=== PATIENT | female | born 1975 | race Caucasian/White ===

== ENCOUNTER 2018-01-02 10:50 | Inpatient (IN) | payer BC, OTHER ==
[~2018-01-02] VITALS: Ht 167.6 cm; Wt 65.8 kg
--- NOTE | 2018-01-02 13:30 | NUR ---
Pre admission Pre-admission assessment performed in the intake department of [facility]. Pt is A&O and ambulatory with a walker. She does not appear intoxicated and answers questions appropriately. She reports that she is here to be treated for opioid withdrawal with occasional Ativan use. Vitals: B/P 115/76, HR 107, RR 18, O2 sat 97%, T 98.0, pain 0/10. Pt is stable and admission is to continue on the [facility].
[2018-01-02] MEDS ORDERED: BUPRENORPHINE HCL 2 MG TAB.SUBL SL PRN (13:45)
[2018-01-02] MEDS ORDERED: LOPERAMIDE HCL 2 MG CAPSULE PO PRN ×2 (13:45)
[2018-01-02] MEDS ORDERED: MIRALAX 17 GM POWD.PACK PO PRN (13:45)
[2018-01-02] MEDS ORDERED: MAGNESIUM HYDROXIDE 30 ML LIQUID UDC PO PRN (13:45)
[2018-01-02] MEDS ORDERED: CLONIDINE HCL 0.1 MG TABLET PO PRN (13:45)
[2018-01-02] MEDS ORDERED: ONDANSETRON 4 MG/2 ML VIAL IM PRN (13:45)
[2018-01-02] MEDS ORDERED: MAG HYDROX/AL HYDROX/SIMETH 30 ML LIQUID UDC PO PRN (13:45)
--- NOTE | 2018-01-02 13:45 | NUR ---
Admission Note Pt 42 y/o female admitted for medically supervised withdrawal of Dilaudid. Pt has allergies to PCN, Macrobid, Gabapentin, latex and medical tape. Pt has history of febrile seizures as a child. Patient is A&O X3. Pt reports Dilaudid use started 18 months ago with CAD pump. Was using 48 mg IV daily for 18 months. Pt had Dilaudid CAD pump removed last week, 12/25/17. Pt has used PO dilaudid 4 mg. Last used yesterday 01/01/18 at 1700. Pt has never been to detox treatment before. Vitals- Resp 18, Sat 97%, HR 107, BP 115/76, Temp 98.7. Height 5'6", weight 145#. Pt is a non-smoker. Pt presents with depressed mood, flat affect, fine tremors, chills, sweats, anxious, irritable, generalized body aches, body pain #5/10, nausea and no appetite. Skin is intact. Pt denies SI/HI. Admitting COWS 17, CIWA 19. Pt reports past medical history of anxiety and depression No daily medications. Only Epi-Pen for allergic reactions. In 2014 she has a left foot injury which lead to her dependency on Dilaudid. 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 Pt had PE in October 2016. She is not on any anti-coagulants. She has pulmonary endocarditis in September 2017 Pt states she is seeking treatment today because she wants off all medications. She has decreasing energy, impaired work productivity and negatively impacting his physical and mental health related to Dilaudid use. Pt states that she is ready to focus on recovery. She has the support of his family. Educated patient about plan of care including detox, group therapy, individual therapy, and discharge planning. Encouraged Pt to be open and honest, verbalize support for Pt in her recovery.
[2018-01-02 13:48] VITALS: BP 115/76
[2018-01-02 14:26] LABS: *URINE HCG, QUAL NEGATIVE (NEGATIVE)
[2018-01-02 14:35] LABS: *AMPHETAMINE, URINE NEGATIVE (NEGATIVE); *BARBITURATE, URINE NEGATIVE (NEGATIVE); *CANNABINOID, URINE NEGATIVE (NEGATIVE); *COCCAINE, URINE NEGATIVE (NEGATIVE); *OPIATE, URINE POSITIVE (NEGATIVE); *PHENCYCLIDINE SCREEN,URINE NEGATIVE (NEGATIVE)
[2018-01-02] MEDS: IBUPROFEN 600 MG TABLET PO PRN (14:55)
[2018-01-02] MEDS: METHOCARBAMOL 750 MG TABLET PO PRN (14:55)
[2018-01-02] MEDS: DICYCLOMINE HCL 20 MG TABLET PO PRN ×2 (14:55→22:07)
[2018-01-02] MEDS: LORAZEPAM 1 MG TABLET PO PRN (14:55)
[2018-01-02] MEDS: BUPRENORPHINE HCL 2 MG TAB.SUBL SL SCH ×2 (14:56→20:40)
--- NOTE | 2018-01-02 14:58 | NUR ---
PRN MEDICATIONS ATIVAN 2 MG PO FOR ANXIETY [id number] BENTYL 20 MG PO FOR STOMACH CRAMPS MOTRIN 600 MG PO FOR BODAY PAIN AND HEADACHE #5/10 ROBAXIN 750 MG PO FOR BODY ACHES
--- NOTE | 2018-01-02 15:05 | NUR ---
PRN ZOFRAN 2 MG IM FOR EMESIS APPROX 20 ML
[2018-01-02] MEDS ORDERED: EPIN0.3A3 IM (15:11)
[2018-01-02 15:19] LABS: BASOPHILS % (AUTO) 0.4 % (0.0-2.0); EOSINOPHILS # (AUTO) 0.1 K/uL (0.0-0.7); HEMATOCRIT 41.4 % (31.2-41.9); HEMOGLOBIN 14.1 g/dL (10.9-14.3); LYMPHOCYTES # (AUTO) 2.7 K/uL (20.0-40.0); LYMPHOCYTES % (AUTO) 34.3 % (20.5-51.5); MEAN CORPUSCULAR HEMOGLOBIN 28.2 uug (24.7-32.8); MEAN CORPUSCULAR HGB CONC 34 g/dL (32.3-35.6); MEAN CORPUSCULAR VOLUME 82.7 fL (75.5-95.3); MONOCYTES # (AUTO) 0.5 K/uL (2.0-10.0); NEUTROPHILS # (AUTO) 4.6 K/uL (1.8-8.9); NEUTROPHILS % (AUTO) 58.3 % (38.5-71.5); PLATELET COUNT (AUTO) 313 K/uL (179-408); RED BLOOD CELL COUNT(AUTO) 5.01 MIL/uL (3.63-4.92); WHITE BLOOD COUNT (AUTO) 7.9 K/uL (3.8-11.8)
[2018-01-02 15:29] LABS: ALANINE AMINOTRANSFERASE 17 U/L (14-59); ALKALINE PHOSPHATASE 73 U/L (50-136); ASPARTATE AMINOTRANSFERASE 11 U/L (15-37); BILIRUBIN,TOTAL 0.7 mg/dL (0.2-1.0); CARBON DIOXIDE 27 mmol/L (21-32); CHLORIDE 106 mmol/L (98-107); CREATININE 0.7 mg/dL (0.6-1.3); GLUCOSE 95 mg/dL (74-106); MAGNESIUM 2.2 mg/dL (1.8-2.4); POTASSIUM 3.5 mmol/L (3.5-5.1); TOTAL PROTEIN, SERUM 8.3 g/dL (6.4-8.2); UREA NITROGEN, BLOOD 6 mg/dL (7-18)
[2018-01-02 15:31] LABS: ETHANOL < 3 MG/DL (0-0)
--- NOTE | 2018-01-02 15:59 | NUR ---
REASSESS- PT REPORTS ANXIETY IMPROVED. STOMACH CRAMPS IMPROVED. PT STILL HAS BODY ACHES AND HEAD ACHE. NAUSEA IMPROVED AND NO MORE EMESIS.
[2018-01-02 16:00] VITALS: BP 111/63
--- NOTE | 2018-01-02 18:29 | NUR ---
End of shift Pt 42 y/o female admitted this afternoon for medically supervised withdrawal of Dilaudid. Pt on 5 day Subutex taper. Last COWS 18, CIWA 21. Pt presents with depressed mood, fine tremors, chills, sweats, anxious, irritable, generalized body aches, body pain #5/10, nausea and no appetite. PRN medications given; Bentyl, Zofran, Motrin, Robaxin, Ativan. PO fluids 1095 ml, voids x 3, no BM. Pt has ALLERGIES to PCN, Macrobid, Gabapentin, latex and medical tape. FULL CODE. All safety precautions in place. Call light within reach. Will continue to monitor for withdrawal symptoms. Endorsed to PM shift.
[2018-01-02 20:00] VITALS: BP 101/62
--- NOTE | 2018-01-02 20:00 | NUR ---
START OF SHIFT NOTE RECEIVED REPORT FROM DAY SHIFT NURSE. PATIENT IS A 42 YEAR OLD FEMALE NEWLY ADMITTED FOR OPIATE WITHDRAWAL. PATIENT WAS PLACED ON 5 DAY SUBUTEX TAPER. PATIENT WAS GIVEN PRN ATIVAN, BENTYL, ZOFRAN , MOTRIN AND ROBAXIN . LAST COWS 18 AND CIWA 21. PATIENT IN THE ROOM, PRESENTS WITH FLAT AFFECT, DEPRESSED MOOD, ANXIOUS, RESTLESS, SWEATING, COLD, ABDOMINAL CRAMPING , RESTLESS LEGS, YAWNING AND NAUSEATED BUT NO EMESIS. SAFETY MEASURES IN PLACE. CALL LIGHT IN REACH. WILL CONTINUE TO MONITOR
[2018-01-02] MEDS: diphenhydrAMINE 50 MG CAPSULE PO PRN (20:37)
[2018-01-02] MEDS: ONDANSETRON ODT 4 MG TAB.RAPDIS SL PRN (20:37)
--- NOTE | 2018-01-02 20:37 | NUR ---
PRN BENADRYL AND ZOFRAN ADMIN PATIENT C/O NAUSEA BUT NO EMESIS AND REQUESTS FOR SLEEP AID. WILL MONITOR FOR EFFECTIVENESS
--- NOTE | 2018-01-02 21:07 | NUR ---
PRN ZOFRAN RE-ASSESSMENT PATIENT STATES NAUSEA CEASED. ZOFRAN EFFECTIVE
--- NOTE | 2018-01-02 22:07 | NUR ---
PRN BENTYL ADMIN PATIENT C/O ABDOMINAL CRAMPING, WILL MONITOR FOR EFFECTIVENESS
--- NOTE | 2018-01-02 23:07 | NUR ---
PRN BENTYL RE-ASSESSMENT PATIENT STATES BENTYL AND HELPFUL. WILL CONTINUE TO MONITOR
--- NOTE | 2018-01-02 23:07 | NUR ---
PRN BENADRYL RE-ASSESSMENT PATIENT IN BED WITH EYES CLOSED. RESPIRATION EVEN AND UNLABORED. WILL CONTINUE TO MONITOR
[2018-01-03] VITALS: BP 94/56
--- NOTE | 2018-01-03 | NUR ---
COWS DEFERRED PATIENT IN BED WITH EYES CLOSED. RESPIRATION EVEN AND UNLABORED. WILL CONTINUE TO MONITOR
--- NOTE | 2018-01-03 00:30 | NUR ---
PT IS CALM AND RESTING IN BED WITH EYES CLOSED.WILL CONTINUE TO MONITOR.
[2018-01-03 04:00] VITALS: BP 96/56
--- NOTE | 2018-01-03 04:00 | NUR ---
COWS DEFERRED PATIENT IN BED WITH EYES CLOSED. RESPIRATION EVEN AND UNLABORED. WILL CONTINUE TO MONITOR
--- NOTE | 2018-01-03 07:11 | NUR ---
END OF SHIFT NOTE PATIENT SLEPT HOURS. FLUID INTAKE ML. VOIDED X . BM. MONITORED PATIENT THROUGHOUT SHIFT. PRESENTED WITH FLAT AFFECT, DEPRESSED MOOD, ANXIOUS, RESTLESS, SWEATING, COLD, ABDOMINAL CRAMPING , RESTLESS LEGS, YAWNING AND NAUSEATED BUT NO EMESIS. SHES EMOTIONAL AND MISSES HER CHILDREN. SCHEDULED MEDICATION AND SUBUTEX GIVEN ORDERED, TOLERATED WELL AND NO ADVERSE REACTION. PATIENT WAS GIVEN PRN ZOFRAN , BENADRYL AND BENTYL. SHES IN HER ROOM MOST OF THE SHIFT. SAFETY MEASURES IN PLACE. CALL LIGHT IN REACH. WILL CONTINUE TO MONITOR. LAST Addendum: 01/03/18 at 0721 by VIDAL WALLS LVN PATIENT SLEPT 6 HOURS. FLUID INTAKE 800 ML. VOIDED X 1. NO BM
--- NOTE | 2018-01-03 07:30 | NUR ---
End of shift Pt 42 y/o female admitted this afternoon for medically supervised withdrawal of opiates. Pt on 5 day Subutex taper and tolerating well. Last COWS 13. Pt presents with depressed mood, fine tremors, chills, sweats, anxious, irritable, generalized body aches, body pain #4/10, nausea and no appetite. Patient is compliant with medication regimen. Encourage pt to attend group therapies/sessions to learn new coping skills to prevent relapse. Pt has ALLERGIES to PCN, Macrobid, Gabapentin, latex and medical tape. FULL CODE. All safety precautions in place. Call light within reach. Will continue to monitor for withdrawal symptoms.
[2018-01-03 08:00] VITALS: BP 92/51
[2018-01-03] MEDS: IBUPROFEN 600 MG TABLET PO PRN ×2 (08:45→21:22)
[2018-01-03] MEDS: BUPRENORPHINE HCL 2 MG TAB.SUBL SL SCH ×3 (08:45→21:22)
[2018-01-03] MEDS: METHOCARBAMOL 750 MG TABLET PO PRN ×2 (08:45→22:57)
--- NOTE | 2018-01-03 08:48 | NUR ---
PRN MOTRIN 600 MG FOR HEAD ACHE AND BACK PAIN #4/10 PRN ROBAXIN 750 MG PO FOR BODY ACHES.
[2018-01-03] MEDS: ONDANSETRON ODT 4 MG TAB.RAPDIS SL PRN ×2 (08:49→20:45)
--- NOTE | 2018-01-03 08:50 | NUR ---
PRN ZOFRAN 4 MG SL FOR NAUSEA PRN MOTRIN 600 MG PO FOR BACK PAIN #4/10 PRN ROBAXIN 750 MG PO FOR BODY ACHES
[2018-01-03] MEDS ORDERED: TUBERCULIN,PURIF.PROT.DERIV. 5 TU/0.1 ML TEST ID ONE (09:00)
--- NOTE | 2018-01-03 09:56 | NUR ---
REASSESS MOTRIN- PT REPORTS BACK PAIN #07/29, IMPROVED. ROBAXIN- PT REPORTS BODY ACHES IMPROVED. ZOFRAN- PT REPORTS NAUSEA RESOLVED. SHE WAS ABLE TO EAT 25% BREAKFAST
[2018-01-03 10:06] LABS: HEPATITIS B SURFACE AG Negative (Negative)
[2018-01-03 12:00] VITALS: BP 99/55
[2018-01-03 12:06] LABS: VIT D, 25-HYDROXY 21.7 ng/mL (30.0-100.0)
[2018-01-03] MEDS: DICYCLOMINE HCL 20 MG TABLET PO PRN (13:16)
--- NOTE | 2018-01-03 13:17 | NUR ---
PRN GIVEN pt is c/o abdominal cramping. Bentyl 20mg PO PRN was given as ordered. Will continue to monitor.
--- NOTE | 2018-01-03 14:15 | NUR ---
REASSESS BENTYL- ABDOMINAL CRAMPS RESOLVED.
[2018-01-03] MEDS: DICYCLOMINE HCL 20 MG TABLET PO SCH ×2 (14:23→21:21)
[2018-01-03] MEDS: ACETAMINOPHEN 325 MG TABLET PO PRN (14:35)
[2018-01-03] MEDS: HYDROXYZINE PAMOATE 25 MG CAPSULE PO PRN (14:35)
--- NOTE | 2018-01-03 14:36 | NUR ---
PRN TYLENOL 650 MG PO FOR BACK PAIN #6/10 PRN VISTARIL FOR MODERATE ANXIETY
--- NOTE | 2018-01-03 15:31 | NUR ---
Client was prompted to attend group counseling sessions and client stated she would attend based on how she was feeling physically.
--- NOTE | 2018-01-03 15:35 | NUR ---
REASSESS TYLENOL- BACK PAIN NOW #2 REASSESS VISTARIL- PT REPORTS ANXIETY IMPROVED.
[2018-01-03 16:00] VITALS: BP 104/53
--- NOTE | 2018-01-03 18:30 | NUR ---
End of shift Pt 42 y/o female admitted for medically supervised withdrawal of opiates. Pt on 5 day Subutex taper tolerating well. PRN given today; Motrin, Robaxin, Tylenol, Vistaril and Zofran. Last COWS 16. Pt presents with fine tremors, chills, sweats, anxious, irritable, generalized body aches, body pain #4/10, nausea and poor appetite. Patient is compliant with medication regimen. Encourage pt to attend group therapies/sessions to learn new coping skills to prevent relapse. Pt not able to attend group therapies today. Pt was able to ambulate around unit twice. PO fluids 2210 ml, Voids X 4, no BM. Pt has ALLERGIES to PCN, Macrobid, Gabapentin, latex and medical tape. FULL CODE. All safety precautions in place. Call light within reach. Will continue to monitor for withdrawal symptoms. Endorsed to PM shift.
--- NOTE | 2018-01-03 19:30 | NUR ---
START OF SHIFT Pt is 42 y/o female admitted for medically supervised withdrawal of opiates. Pt continues on 5 day Subutex taper and is tolerating well. PRN given today; Motrin, Robaxin, Tylenol, Vistaril and Zofran. Last COWS 16. Pt received resting in bed,responsive on approach.Pt is a/o x 4,c/o having generalized body ache,nausea and abdominal cramps.PO fluids encouraged as tolerated. All safety precautions in place. Call light within reach. Will continue to monitor and medicate for withdrawal symptoms.
[2018-01-03 20:00] VITALS: BP 105/65
--- NOTE | 2018-01-03 20:45 | NUR ---
PRN ZOFRAN GIVEN ORDERED FOR C/O NAUSEA.NO C/O VOMITING NOTED.WILL MONITOR FOR EFFECTIVENESS.
[2018-01-03] MEDS: diphenhydrAMINE 50 MG CAPSULE PO PRN (21:22)
--- NOTE | 2018-01-03 21:22 | NUR ---
PRN MOTRIN AND BENADRYL GIVEN ORDERED FOR C/O GENERALIZED BODY ACHE AND INSOMNIA.WILL MONITOR. Addendum: 01/03/18 at 2214 by AMANDA SANFORD RN NAUSEA RESOLVED.
--- NOTE | 2018-01-03 22:25 | NUR ---
PRN REASSESSMENT PT IS STILL AWAKE,TRYING TO SLEEP.MOTRIN IS HELPFUL IN REDUCING BODY ACHE FROM 6/10 TO 2/1O.
--- NOTE | 2018-01-03 22:58 | NUR ---
PRN ROBAXIN GIVEN FOR MYALGIA.WILL MONITOR.
--- NOTE | 2018-01-03 23:50 | NUR ---
ROBAXIN REASSESSMENT PT STATES FEELING BETTER.MYALGIA RESOLVED.DVT PUMPS APPLIED ORDERED.WILL CONTINUE TO MONITOR.
[2018-01-04] VITALS: BP 84/50
[2018-01-04 04:00] VITALS: BP 85/50
--- NOTE | 2018-01-04 04:00 | NUR ---
COWS DEFERRED PATIENT IS RESTING IN BED WITH EYES CLOSED. COWS DEFERRED DUE PT BEING ASLEEP.RESPIRATION EVEN AND UNLABORED. WILL CONTINUE TO MONITOR
--- NOTE | 2018-01-04 07:00 | NUR ---
END OF SHIFT Pt 42 y/o female admitted for medically supervised withdrawal of opiates. Pt continues on 5 day Subutex taper and is tolerating well. PRN meds given : Motrin, Robaxin, Benadryl and Zofran. Last COWS 10 at midnight. Pt is compliant with medications and treatment plan. PO fluids encouraged as tolerated. All safety precautions in place.Pt slept 7 hrs,fluid intake was 1298 mls,voided x 3. Call light within reach. Will endorse care to day shift .
--- NOTE | 2018-01-04 07:17 | NUR ---
Start of Shift Notes: Received patient in her room. Easily arousable. Alert and oriented x 4. Wakes up when her name is called. She appears drowsy and somnolent upon waking. She appears disheveled. Encouraged maintenance of personal hygiene and space. Patient is a 42 year old male admitted for opiate withdrawal. She was placed on a 5-day Subutex taper as ordered. No adverse reactions noted. SCD pumps at bedside due to hx of PE. Educated patient on her current plan of care for the day and her medication regimen. Encouraged maintenance of personal hygiene and space. PRN Motrin, Robaxin, Benadryl, and Zofran given during the night. Slept for 7 hours. Last COWS 10. All needs met and attended. Will continue to monitor closely.
[2018-01-04 08:00] VITALS: BP 100/54
[2018-01-04] MEDS: ONDANSETRON ODT 4 MG TAB.RAPDIS SL PRN (08:16)
[2018-01-04] MEDS: METHOCARBAMOL 750 MG TABLET PO PRN ×2 (08:16→21:07)
--- NOTE | 2018-01-04 08:16 | NUR ---
Zofran 4mg SL/Clonidine 0.1mg/Robaxin 750mg/Toradol 30 mg/Ativan 2 mg PO given: , patient presented with gross tremors, chills, hot flashes, sweating, anxious, agitated, nausea, no vomiting, muscle aches, headache, PL 8/10, patient appears irritable and hyperverbal, verbalizing "I'm so cold and hot and I start shaking." Medicated patient with Zofran 4mg SL, Clonidine 0.1mg, Robaxin 750 mg, Toradol 30 mg IM, and Ativan 2 mg PO as ordered. Will monitor for effectiveness.
[2018-01-04] MEDS: CHOLECALCIFEROL 1,000 UNIT TABLET PO SCH (08:17)
[2018-01-04] MEDS: KETOROLAC TROMETHAMINE 30 MG INJ IM PRN (08:17)
[2018-01-04] MEDS: LORAZEPAM 1 MG TABLET PO PRN (08:17)
[2018-01-04] MEDS: DICYCLOMINE HCL 20 MG TABLET PO SCH ×3 (08:17→21:06)
--- NOTE | 2018-01-04 08:46 | NUR ---
Re-assessment: Toradol Patient verbalizes that her PL is now 3/10. PRN Toradol effective in reducing generalizes body aches.
[2018-01-04] MEDS ORDERED: BUPRENORPHINE HCL 2 MG TAB.SUBL SL SCH (09:00)
--- NOTE | 2018-01-04 09:16 | NUR ---
DC from PT/Re-assessment: Zofran, Clonidine, Robaxin and Ativan Patient appears calm at this time. She denies nausea, chills, hot flashes and sweating. She appears less agitated and verbalizes that her PL is now 3/10. She is currently with PT which will be dc'd today. Patient is able to ambulate ad jessica with FWW as tolerated. Will continue to monitor.
[2018-01-04] MEDS: DOCUSATE SODIUM 250 MG CAPSULE PO SCH (11:04)
[2018-01-04 12:00] VITALS: BP 91/63
--- NOTE | 2018-01-04 13:00 | NUR ---
Mid Shift Notes: COWs 15 at 1200. VSS. She is eating lunch in her room at this time. Uses FWW to ambulate ad jessica to ambulate around the unit.
--- NOTE | 2018-01-04 13:30 | NUR ---
Client was prompted to attend group counseling sessions.
[2018-01-04] MEDS: BUPRENORPHINE HCL 2 MG TAB.SUBL SL SCH ×2 (14:03→21:08)
--- NOTE | 2018-01-04 14:13 | NUR ---
Clarification of Usage: Clarification of Usage done. Patient verbalizes that she would use 1 to 4 mg of Dilaudid via IV CAD pump every 3 to 4 hours while she is awake.
[2018-01-04 16:00] VITALS: BP 96/52
--- NOTE | 2018-01-04 19:01 | NUR ---
End of Shift Notes: Patient continues to be on 5-day Subutex taper as ordered. Patient is currently on day 2 of her taper. She is tolerating it well without any adverse reactions noted. VS monitored closely. No significant abnormalities noted. Withdrawal symptoms were closely monitored. Initial COWS 23, patient presented with anxiety, agitation, yawning, chills, sweats, hot flashes, gross tremors, myalgia, headache, fatigue, abdominal cramps, and nausea requiring patient to be medicated with Zofran, Clonidine, Robaxin, Toradol and Ativan at 0816 with help. Last COWS 14. Patient verbalizes that Subutex has been effective in reducing her withdrawal symptoms. She was encouraged to attend group and social activities to learn coping skills to deal with negative emotions. She self isolates at times but is pleasant, compliant with care and treatment. Patient was dcd from PT today. Seen and examined by Dr. Rabago today and added Baclofen and Clonidine routinely to her medication regimen. Able to ambulate ad jessica with FWW around the unit. Appetite good. All needs met and attended. Will continue to monitor closely.
--- NOTE | 2018-01-04 19:30 | NUR ---
START OF SHIFT Pt 42 y/o female admitted for medically supervised withdrawal of opiates. Pt continues Subutex taper as ordered and is tolerating well.Last COWS 14. Pt stated that Subutex has been effective in reducing her withdrawal symptoms. PRN meds given during the day : Zofran, Clonidine, Robaxin, Toradol and Ativan .Pt stays in room most of time, mood is sad and depressed,pt stated that she is missing her children. Pt c/o having feeling anxious with generalized body aches,leg cramps and is requesting for sleep medication to help her sleep.She is pleasant on approach, compliant with care and treatment. Pt able to ambulate with a walker around the unit. Will continue to monitor for safety and medicate per orders. Addendum: 01/04/18 at 2007 by AMANDA SANFORD RN Pt does not want to take any medications at this time,is going for smoke break.Wants to take all her meds at bed time.
[2018-01-04 20:00] VITALS: BP 96/65
[2018-01-04] MEDS: IBUPROFEN 600 MG TABLET PO PRN (21:06)
[2018-01-04] MEDS: diphenhydrAMINE 50 MG CAPSULE PO PRN (21:07)
[2018-01-04] MEDS: BACLOFEN 10 MG TABLET PO SCH (21:07)
--- NOTE | 2018-01-04 21:07 | NUR ---
PRN MEDS MOTRIN,ROBAXIN AND BENADRYL GIVEN ORDERED F0R C/O HEADACHE,MYALGIA AND INSOMNIA.WILL CONTINUE TO MONITOR.PAIN LEVEL IS 7/10
[2018-01-04] MEDS: CLONIDINE HCL 0.1 MG TABLET PO SCH (21:08)
--- NOTE | 2018-01-04 22:20 | NUR ---
PRN MEDS ARE EFFECTIVE.PT IS CALM AND RESTING IN BED WITH EYES CLOSED.BREATHING IS EVEN AND NON LABORED,WILL CONTINUE TO MONITOR.
[2018-01-05] VITALS: BP 88/50
--- NOTE | 2018-01-05 | NUR ---
COWS DEFERRED PATIENT IS RESTING IN BED WITH EYES CLOSED. COWS DEFERRED DUE PT BEING ASLEEP.RESPIRATION EVEN AND UNLABORED.NO S/S OF DISTRESS NOTED. WILL CONTINUE TO MONITOR
[2018-01-05 04:00] VITALS: BP 89/52
--- NOTE | 2018-01-05 06:48 | NUR ---
END OF SHIFT Pt is a 42 y/o female admitted for medically supervised withdrawal of opiates. Pt continues on Subutex taper as ordered and is tolerating well.Last COWS 12 at 2000,midnight and 0400 cows deferred due to Pt being asleep. Pt stated that Subutex has been effective in reducing her withdrawal symptoms. PRN meds given during the night: Robaxin, Motrin and Benadryl which were effective. Pt slept 8 hrs,fluid intake was 500 mls,voided x 1 . Will endorse care to day shift nurse.
--- NOTE | 2018-01-05 07:24 | NUR ---
Start of Shift Notes: Received patient in her room. Easily arousable. Alert and oriented x 4. Wakes up when her name is called. She appears drowsy and somnolent upon waking. She appears disheveled. Encouraged maintenance of personal hygiene and space. She states "I don't know what I feel yet. I just woke up." Patient is a 42 year old male admitted for opiate withdrawal. She was placed on a 5-day Subutex taper as ordered. No adverse reactions noted. SCD pumps at bedside due to hx of PE. Educated patient on her current plan of care for the day and her medication regimen. Encouraged maintenance of personal hygiene and space. PRN Motrin, Robaxin, and Zofran given during the night. Slept for 8 hours. Last COWS 12. All needs met and attended. Will continue to monitor closely.
[2018-01-05 08:00] VITALS: BP 100/61
[2018-01-05] MEDS: DICYCLOMINE HCL 20 MG TABLET PO SCH ×3 (08:15→21:08)
[2018-01-05] MEDS: KETOROLAC TROMETHAMINE 30 MG INJ IM PRN ×2 (08:15→23:17)
[2018-01-05] MEDS: CLONIDINE HCL 0.1 MG TABLET PO SCH ×2 (08:15→21:09)
[2018-01-05] MEDS: BACLOFEN 10 MG TABLET PO SCH ×2 (08:15→21:09)
[2018-01-05] MEDS: METHOCARBAMOL 750 MG TABLET PO PRN ×2 (08:15→21:09)
[2018-01-05] MEDS: DOCUSATE SODIUM 250 MG CAPSULE PO SCH (08:15)
[2018-01-05] MEDS: CHOLECALCIFEROL 1,000 UNIT TABLET PO SCH (08:15)
--- NOTE | 2018-01-05 08:15 | NUR ---
Robaxin 750 mg PO/Toradol 30 mg IM given: Patient noted with complain of generalized 8/10 pain related to chronic regional pain syndrome and s/s of withdrawal. Patient is teary with noted facial grimacing and rubbing joints. Medicated patient with Robaxin 750 mg PO and Toradol 30 mg IM as ordered. Will monitor for effectiveness.
[2018-01-05] MEDS: BUPRENORPHINE HCL 2 MG TAB.SUBL SL SCH ×3 (08:16→21:08)
--- NOTE | 2018-01-05 08:45 | NUR ---
Re-assessment: Toradol Patient verbalized that PRN Toradol was effective in reducing pain. She states that her pain is now 2/10. No changes in LOC noted. Remains alert and oriented x 4.
--- NOTE | 2018-01-05 11:11 | NUR ---
New Orders: Bactrim DS Patient will be started on Bactrim DS tonight at 2100 for tx of bartholin cyst. Patient education provided. Patient verbalized good understanding.
[2018-01-05 12:00] VITALS: BP 97/61
--- NOTE | 2018-01-05 12:35 | NUR ---
Client was prompted to attend group counseling sessions.
[2018-01-05] MEDS ORDERED: LIDOCAINE 1%-EPI 1:100,000 20 ML VIAL TP STA (14:50)
--- NOTE | 2018-01-05 15:00 | NUR ---
Physician Consultation/I&D procedure: Dr. Walsh and HAZEL Willett seen and examined the patient's left labial Bartholin cyst. Consent for I& D procedure obtained after educating patient of the procedure. I & D to patient's left labial Bartholin cyst was done. Patient tolerated well. Culture obtained. Lidocaine EPI was administered by
[2018-01-05 16:00] VITALS: BP 94/55
--- NOTE | 2018-01-05 19:01 | NUR ---
End of Shift Notes: Patient continues to be on 5-day Subutex taper as ordered. Patient is currently on day 3 of her taper. She is tolerating it well without any adverse reactions noted. VS monitored closely. No significant abnormalities noted. Withdrawal symptoms were closely monitored. Initial COWS 218, patient presented with anxiety, agitation, chills, sweats, hot flashes, gross tremors, myalgia, fatigue, abdominal cramps, requiring patient to be medicated with Robaxin and Toradol at 0815. Denies S/I or H/I noted. Last COWS 14. Patient verbalizes that Subutex has been effective in reducing her withdrawal symptoms. I & D was performed by MD Walsh to patients left labial Bartholin cyst. Dressing intact. She was encouraged to attend group and social activities to learn coping skills to deal with negative emotions. Compliant with care and treatment. Able to ambulate ad jessica with FWW around the unit. Appetite good. All needs met and attended. Will continue to monitor closely.
--- NOTE | 2018-01-05 19:30 | NUR ---
START OF SHIFT Pt is a 42 y/o female admitted for medically supervised withdrawal from opiates. Pt continues on Subutex taper as ordered and is tolerating well.Last COWS 14. Pt stated that Subutex has been effective in reducing her withdrawal symptoms.Per day shift report, I & D was performed by MD Walsh to patients left labial Bartholin cyst. Dressing is intact.Pt is c/o of minimal pain at this time.Pain level is 2/10.Pt will be started on Bactrim DS tonight at 2100 for tx of bartholin cyst.PO fluids encouraged as tolerated. Pt stated that she has prior hx of this problem but this time it is the worst.Mood is sad and depressed because she is missing her children.Emotional support provided,Pt encouraged to verbalize feelings and concerns.Pt is pleasant and cooperative with medications and tx plan.Will continue to monitor.
[2018-01-05 20:00] VITALS: BP 96/55
[2018-01-05] MEDS: SULFAMETH/TRIMETH 800/160 MG TABLET PO SCH (21:08)
[2018-01-05] MEDS: diphenhydrAMINE 50 MG CAPSULE PO PRN (21:09)
[2018-01-05] MEDS: IBUPROFEN 600 MG TABLET PO PRN (21:09)
--- NOTE | 2018-01-05 21:10 | NUR ---
PRN MEDS PT C/O PAIN AROUND GENITAL AREA,SECONDARY TO PROCEDURE DONE EARLIER TODAY.PAIN LEVEL IS 5/10.PRN MOTRIN GIVEN FOR PAIN ORDERED.PT IS ALSO C/O HAVING MUSCLE ACHE/ PAIN AND INSOMNIA.PRN ROBAXIN AND BENADRYL GIVEN ORDERED FOR C/O MYALGIA AND INSOMNIA.WILL MONITOR FOR EFFECTIVENESS.
--- NOTE | 2018-01-05 22:10 | NUR ---
PRN REASSESSMENT PRN MOTRIN IS MINIMALL EFFECTIVE IN DECREASING PAIN.PAIN LEVEL IS 2/10.MYALGIA RESOLVED.DVT PUMPS IN PLACE.WILL CONTINUE TO MONITOR.
--- NOTE | 2018-01-05 23:17 | NUR ---
PRN TORADOL IM GIVEN ORDERED FOR C/O LEFT LABIAL PAIN.PAIN LEVEL IS 8/10.WILL MONITOR FOR EFFECTIVENESS.
[2018-01-06] VITALS: BP 90/53
--- NOTE | 2018-01-06 00:17 | NUR ---
PRN F/U PRN TORADOL IS EFFECTIVE.PT IS CALM AND RESTING IN BED WITH EYES CLOSED.WILL CONTINUE TO MONITOR.
[2018-01-06 04:00] VITALS: BP 89/55
--- NOTE | 2018-01-06 06:41 | NUR ---
END OF SHIFT Pt is a 42 y/o female admitted for medically supervised withdrawal of opiates. Pt continues on Subutex taper as ordered and is tolerating well.Last COWS 12. Pt stated that Subutex has been effective in reducing her withdrawal symptoms.Yesterday, I & D was performed by MD Walsh to patients left labial Bartholin cyst. Dressing is intact. Pt was started on Bactrim DS last night at 2100 for tx of bartholin cyst. No A/R noted. PRN meds given : Benadryl,Motrin,Robaxin and Toradol IM .Pt is pleasant and cooperative with medications and tx plan. Pt slept intermittently for 5 hrs,fluid intake was 1500 mls,voided x 4 .Pt is resting in bed with eyes closed at this time.Will endorse care to day shift nurse.
[2018-01-06 08:00] VITALS: BP 97/60
[2018-01-06] MEDS: BACLOFEN 10 MG TABLET PO SCH ×2 (08:37→21:13)
[2018-01-06] MEDS: CHOLECALCIFEROL 1,000 UNIT TABLET PO SCH (08:37)
[2018-01-06] MEDS: DICYCLOMINE HCL 20 MG TABLET PO SCH ×3 (08:37→21:13)
[2018-01-06] MEDS: SULFAMETH/TRIMETH 800/160 MG TABLET PO SCH ×2 (08:38→21:13)
[2018-01-06] MEDS: DOCUSATE SODIUM 250 MG CAPSULE PO SCH (08:43)
--- NOTE | 2018-01-06 08:45 | NUR ---
START OF SHIFT PT IS A 42 Y/O F ADMITTED ON 01/02/18 FOR MEDICALLY SUPERVISED OPIATE WITHDRAWAL. PT IS ON 5 DAY SUBUTEX TAPER THAT STARTED ON 01/03/18 AND TOLERATING WELL. LAST COWS 12 AND PT HAS BEEN GIVEN ROBAXIN, TORADOL, BENADRYL, IBUPROFEN PRNS LAST NIGHT AND PT SLEPT FOR 5 HRS INTERMITTENTLY. I&D WAS PERFORMED ON LEFT LABIA FOR BERTHOLIN CYST AND DRESSING IS INTACT. TO BE CHANGED AFTER PT TAKES A SHOWER. PT IS CURRENTLY RECEIVING PO ABX. DENIES PAIN AND REFUSES PAIN MEDS AT THIS TIME. PT IS A/OX4, PRESENTS ANXIOUS AND DEPRESSIVE MOOD. PRESENTS MILD ANXIETY, GENERALIZED BODY ACHES, INTERMITTENT CHILLS AND COLD FLASHES, RESTLESSNESS, CONGESTION, STOMACH CRAMPS AND INTERMITTENT PILOERECTION OF THE SKIN. PT STATES SHE WOULD HAVE NOT TAKEN PRESCRIPTION OPIATES IF SHE WAS GIVEN PROPER EDUCATION ABOUT WITHDRAWAL WHEN STOP TAKING. PT IS FEELING EMOTIONAL AND VERBALIZES FEELINGS ABOUT THE SITUATION. ENCOURAGED PT TO ATTEND GROUPS. SIDE RAILS UPX2, BED IN LOW POSITION. CALL LIGHT WITHIN REACH. SAFETY MEASURES IN PLACE. WILL CONTINUE TO MONITOR.
[2018-01-06] MEDS: BUPRENORPHINE HCL 2 MG TAB.SUBL SL SCH ×2 (09:04→21:14)
[2018-01-06] MEDS ORDERED: LIDOCAINE 5% OINT 35.44 GM TUBE TOP PRN (11:00)
[2018-01-06 12:00] VITALS: BP 96/62
--- NOTE | 2018-01-06 12:33 | NUR ---
PRN XYLOCAINE OINTMENT GIVEN ON L LABIAL AREA PRIOR TO WOUND CHANGE.
--- NOTE | 2018-01-06 13:03 | NUR ---
REASSESSMENT PT REPORTS MED WAS EFFECTIVE HOWEVER STILL PAINFUL DURING WOUND CHANGE. SAFETY MEASURES IN PLACE. WILL CONTINUE TO MONITOR.
--- NOTE | 2018-01-06 13:10 | NUR ---
WOUND TREATMENT DONE ON L LABIAL AREA AFTER PT SHOWERED; APPLIED LIDOCAINE OINTMENT, CLEANSED WITH NS AND WET PACKING W/ IODOPHORM PACKING STRIP.
--- NOTE | 2018-01-06 14:43 | NUR ---
PRN MIRALAX AND ROBAXIN PO PRNS GIVEN; PT REFUSED TO HAVE IBUPROFEN. PT C/O GENERALIZED PAIN 5/10 AND PAIN ON THE SIDES OF HER STOMACH BUT REPORTS NOT GI PAIN. WILL MONITOR AND REASSESS.
[2018-01-06] MEDS: METHOCARBAMOL 750 MG TABLET PO PRN (14:44)
--- NOTE | 2018-01-06 15:43 | NUR ---
REASSESSMENT PT REPORT ROBAXIN EFFECTIVE; PT REPORTS HAVING NO BM YET. WILL CONTINUE TO MONITOR AND PROVIDE SUPPORT.
[2018-01-06 16:30] VITALS: BP 105/58
--- NOTE | 2018-01-06 18:37 | NUR ---
END OF SHIFT LAST COWS 12. PT HAS BEEN GIVEN ROBAXIN, MIRALAX AND XYLOCAINE 5% OINTMENT PRNS DURING SHIFT. PT C/O CONSTIPATION AND HAS NOT YET HAD A BM. PT HAS BEEN COMPLIANT WITH MED REGIMEN AND TREATMENT PLAN. WOUND CHANGE HAS BEEN DONE AFTER PT SHOWERED @1330. PT ATE MOSTLY 75% OF MEALS. FLUID INTAKE 2750ML, VOIDED 5, BM 0. SAFETY MEASURES IN PLACE. WILL GIVE ENDORSEMENT TO VIDEO RECORDER MECHANIC NURSE.
--- NOTE | 2018-01-06 19:12 | NUR ---
Start of shift note Received report from day shift nurse. Pt is a 42 yo female, A+Ox4, presenting to [facility] for Opiate/Benzo withdrawal. Pt noted with agitation, restlessness, and anxiety. Pt has HX of endocarditis, PTSD, Pulmonary embolism, Chronic regional pain syndrome, anxiety, and depression which will be monitored during shift. Pt is on 5 day Subutex taper, tolerated well. Respirations even and unlabored. Will continue to monitor.
[2018-01-06 20:10] VITALS: BP 106/70
[2018-01-06] MEDS: CLONIDINE HCL 0.1 MG TABLET PO SCH (21:13)
[2018-01-06] MEDS: diphenhydrAMINE 50 MG CAPSULE PO PRN (21:28)
--- NOTE | 2018-01-06 21:28 | NUR ---
PRN Benadryl Pt c/o inability to sleep and requested for PRN Benadryl. Medication given and tolerated well. Will reassess within 1 HR. Will continue to monitor.
--- NOTE | 2018-01-06 22:20 | NUR ---
PRN Benadryl Reassessment Medication effective. Pt is resting well in bed. No s/s of ASE noted at this time. Respirations even and unlabored. Will continue to monitor.
[2018-01-07 00:15] VITALS: BP 127/85
[2018-01-07] MEDS: HYDROXYZINE PAMOATE 25 MG CAPSULE PO PRN (02:42)
--- NOTE | 2018-01-07 02:42 | NUR ---
PRN Vistaril Pt c/o anxiety and requested for PRN Vistaril. Medication given and tolerated well. Will reassess within 1 HR. Will continue to monitor.
--- NOTE | 2018-01-07 03:33 | NUR ---
PRN Vistaril Reassessment Medication effective. Pt expresses reduction in anxiety. No s/s of ASE noted at this time. Respirations even and unlabored. Will continue to monitor.
[2018-01-07 04:40] VITALS: BP 122/82
--- NOTE | 2018-01-07 07:00 | NUR ---
End of shift note Pt was continuously noted with anxiety, agitation, restlessness, and mild pain. Pt remained in room for majority of shift except to get food from kitchen. Pt remained cooperative and compliant with all aspects of treatment. Pt was given PRN Benadryl @2128 and PRN Vistaril @0242. Pt is on 5 day Subutex taper, tolerated well. Pt slept for a total of 4 HRS. Last COWS: 12 @0400. Respirations even and unlabored. Will endorse to day shift nurse.
--- NOTE | 2018-01-07 07:45 | NUR ---
START OF SHIFT Endorse rcvd from ongoing nurse, client is in bed, a/o x 4. Client presents with depressed mood and flat affect. Client denies any N/V/D. Client reports anxiety, restless legs, sweats, chills, headache, and fatigue. Bartholin abscess s/p I&D (01/05/18) left labial erythema with tenderness, incision site dry with minimum serosanguineous drainage. Last CIWA 12 @ 0400. PRN Vistaril 25mg PO for anxiety, Benadryl 50mg PO for insomnia, client slept 4 hrs. Encourage client to increase PO fluid to facilitate detox. Encourage client to participate in group therapy to learn skills to maintain sober. Seizure precautions in place. Bed in lowest/locked position. Side rails x 2 up/padded. Call light within reach.
[2018-01-07 08:50] VITALS: BP 117/75
[2018-01-07] MEDS ORDERED: BUPRENORPHINE HCL 2 MG TAB.SUBL SL SCH (09:00)
[2018-01-07] MEDS: DOCUSATE SODIUM 250 MG CAPSULE PO SCH (09:03)
[2018-01-07] MEDS: DICYCLOMINE HCL 20 MG TABLET PO SCH ×3 (09:03→20:52)
[2018-01-07] MEDS: SULFAMETH/TRIMETH 800/160 MG TABLET PO SCH ×2 (09:03→20:52)
[2018-01-07] MEDS: BACLOFEN 10 MG TABLET PO SCH ×2 (09:03→20:53)
[2018-01-07] MEDS: CHOLECALCIFEROL 1,000 UNIT TABLET PO SCH (09:03)
[2018-01-07 12:55] VITALS: BP 97/58
[2018-01-07] MEDS ORDERED: CHOL10002 PO (14:38)
[2018-01-07] MEDS ORDERED: IBUP-1957 PO (14:38)
[2018-01-07] MEDS ORDERED: ACET325T53 PO (14:38)
[2018-01-07] MEDS ORDERED: DICY20TA28 PO (14:38)
[2018-01-07] MEDS ORDERED: DIPH50CA37 PO (14:38)
[2018-01-07] MEDS ORDERED: CLON0.1T14 PO (14:38)
[2018-01-07] MEDS ORDERED: METH-406 PO (14:38)
[2018-01-07] MEDS ORDERED: DOCU250C14 PO (14:38)
[2018-01-07] MEDS ORDERED: HYDR-3895 PO (14:38)
[2018-01-07] MEDS: IBUPROFEN 800 MG TABLET PO PRN (15:24)
--- NOTE | 2018-01-07 15:24 | NUR ---
PRN Motrin 800mg PO for pain on wound s/p I&D L labial 12/27. Call light within reach.
--- NOTE | 2018-01-07 15:44 | NUR ---
Client was prompted to attend group counseling sessions.
--- NOTE | 2018-01-07 16:00 | NUR ---
Wound treatment to wound on L labial discussed with client, she understands the procedure, no inquiries made at this time.
--- NOTE | 2018-01-07 16:24 | NUR ---
Reassess PRN Motrin 800mg, client reports relief from pain on wound s/p I&D L labial 08/29, but tolerable.
[2018-01-07 16:55] VITALS: BP 105/62
[2018-01-07] MEDS: ACETAMINOPHEN 325 MG TABLET PO PRN (18:59)
--- NOTE | 2018-01-07 18:59 | NUR ---
PRN Tylenol 650mg PO for generalized body aches 11/26. Call light within reach. Endorse to incoming nurse to reassess.
--- NOTE | 2018-01-07 19:21 | NUR ---
END OF SHIFT Endorse rcvd from ongoing nurse, client is in bed, a/o x 4. Client continues to present with depressed mood, flat affect, anxiety, restless legs, body aches, and fatigue. Last COWS 6 @ 1600. PRN administered and noted per protocol. Adequate PO fluid intake 2400mL, void x 4. Client consumes 75% of meals. Client is not compliant with group therapy. Seizure precautions in place. Bed in lowest/locked position. Side rails x 2 up/padded. Call light within reach.
--- NOTE | 2018-01-07 19:22 | NUR ---
Start of shift note Received report from day shift nurse. Pt is a 42 yo female, A+Ox4, presenting to [facility] for Opiate/Benzo withdrawal. Pt noted to be agitated, anxious, and restless. Pt has HX of PTSD, anxiety, depression, endocarditis, pulmonary embolism, left foot injury, and chronic regional pain syndrome. Pt has completed 5 day Subutex taper, tolerated well, and is due for discharge tomorrow. Respirations even and unlabored. Will continue to monitor.
--- NOTE | 2018-01-07 19:48 | NUR ---
PRN Tylenol Reassessment Medication effective. Pt expresses reduction of pain to 2/10. No s/s of ASE noted at this time. Respirations even and unlabored. Will continue to monitor.
[2018-01-07 20:18] VITALS: BP 101/53
[2018-01-07] MEDS: CLONIDINE HCL 0.1 MG TABLET PO SCH (20:53)
[2018-01-07] MEDS: diphenhydrAMINE 50 MG CAPSULE PO PRN (21:02)
--- NOTE | 2018-01-07 21:02 | NUR ---
PRN Benadryl Pt c/o inability to sleep and requested for PRN Benadryl. Medication given and tolerated well. Will reassess within 1 HR. Will continue to monitor.
[2018-01-08 00:42] VITALS: BP 110/59
[2018-01-08 04:29] VITALS: BP 115/64
--- NOTE | 2018-01-08 07:00 | NUR ---
End of shift note Pt was continuously noted with anxiety, agitation, and restlessness. Pt remained in room for majority of shift except to get food from kitchen. Pt remained compliant and cooperative with all aspects of treatment. Pt has completed 5 day Subutex taper, tolerated well, and is due for discharge today. Pt was given PRN Deannel @2102. Pt slept for a total of 7 HRS. Last COWS: 5 @0400. Respirations even and unlabored. Will endorse to day shift nurse.
--- NOTE | 2018-01-08 07:36 | NUR ---
START OF SHIFT Client is in room, she is a/o x 4. Client presents with anxious mood and flat affect. She reports feeling anxious because of being discharge home this am. She stated, "I know what I have to do now, I will go to AA meeting, I am planning to get acupuncture to help me deal with my chronic pain." Discuss discharge instructions and medications prescribed, client has no inquiries at this time. Client reports generalized body aches, pain on wound site L labial (sp I&D 01/05/18) 09/26. Client completed 5 day Subutex taper. Last COWS 5 @ 0400. PRN Benadryl 50mg PO for insomnia, client slept 7 hrs. Seizure precautions rendered.
[2018-01-08 08:12] VITALS: BP 104/58
--- NOTE | 2018-01-08 08:45 | NUR ---
Wound treatment to Left labial applied, client unable to do it herself, but stated, "I know how to do the packing, is just that it is hard to do it, but my will be able to do it with my instructions." Client verbalized instructions.
[2018-01-08] MEDS: CHOLECALCIFEROL 1,000 UNIT TABLET PO SCH (08:59)
[2018-01-08] MEDS: DICYCLOMINE HCL 20 MG TABLET PO SCH (08:59)
[2018-01-08] MEDS: SULFAMETH/TRIMETH 800/160 MG TABLET PO SCH (08:59)
[2018-01-08] MEDS: DOCUSATE SODIUM 250 MG CAPSULE PO SCH (08:59)
[2018-01-08] MEDS: BACLOFEN 10 MG TABLET PO SCH (08:59)
[2018-01-08] MEDS: IBUPROFEN 800 MG TABLET PO PRN (09:51)
--- NOTE | 2018-01-08 09:51 | NUR ---
PRN Motrin 800mg PO administered for pain 4/10 on wound at Left labial.
--- NOTE | 2018-01-08 10:00 | NUR ---
Admission Note Client discharged in stable condition with all valuable, belongings, prescription, and home meds. Client denies SI/HI. To home via private car with Gama Mari.
== END 2018-01-08 10:00 | disposition home or self-care (01) | DRG 895 ==
LOC: SRC 12:43
PROVIDERS: ADMIT Internal Medicine; ATTEND Internal Medicine
PROC: HZ2ZZZZ Detoxification Services for Substance Abuse Treatment (ICD-10-PCS; principal; 2018-01-02)
PROC: HZ41ZZZ Group Counseling for Substance Abuse Treatment, Behavioral (ICD-10-PCS; 2018-01-04)
PROC: HZ31ZZZ Individual Counseling for Substance Abuse Treatment, Behavioral (ICD-10-PCS; 2018-01-04)
PROC: 0U9LXZZ Drainage of Vestibular Gland, External Approach (ICD-10-PCS; 2018-01-05)
DX: F11.23 Opioid dependence with withdrawal (principal); G90.522 Complex regional pain syndrome I of left lower limb; N75.1 Abscess of Bartholin's gland; F43.10 Post-traumatic stress disorder, unspecified; Z90.49 Acquired absence of other specified parts of digestive tract; Z86.711 Personal history of pulmonary embolism; Z88.1 Allergy status to other antibiotic agents; Z88.0 Allergy status to penicillin; R26.81 Unsteadiness on feet; Z81.8 Family history of other mental and behavioral disorders; Z91.040 Latex allergy status
CPT/HCPCS: 36415; 70030-TC; 80307; 80361; 82306; 83735; 84443; 84703; 85025; 86580; 86592; 86705; 86803; 87070; 87077; 87340; 87806; A4663; G0480; J1885; J2405; J3490; Q0162; Q0163